=== PATIENT | male | born 1940 | race Caucasian/White ===

== ENCOUNTER 2021-05-19 18:38 | Emergency (ER) | payer BC | END 2021-05-19 23:00 | disposition home or self-care (01) | LOC: ER1 18:38 | DX: Z23 Encounter for immunization (principal); U07.1 COVID-19; I50.9 Heart failure, unspecified; E11.9 Type 2 diabetes mellitus without complications; Z86.73 Personal history of transient ischemic attack (TIA), and cerebral infarction without residual deficits | CPT/HCPCS: 71045; 99283; M0243 ==